=== PATIENT | female | born 1960 | race Caucasian/White ===

== ENCOUNTER 2019-06-23 19:48 | Emergency (ER) | payer OTHER, BC ==
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
[2019-06-23] MEDS ORDERED: IBUPROFEN 600 MG TABLET PO STA (23:21)
[2019-06-23] MEDS ORDERED: ACETAMINOPHEN 325 MG TABLET PO STA (23:21)
[2019-06-23 23:34] VITALS: BP 130/77
== END 2019-06-23 23:57 | disposition home or self-care (01) ==
LOC: ED 19:48
DX: S20.219A Contusion of unspecified front wall of thorax, initial encounter (principal); S80.02XA Contusion of left knee, initial encounter; V43.52XA Car driver injured in collision with other type car in traffic accident, initial encounter; Y92.410 Unspecified street and highway as the place of occurrence of the external cause
CPT/HCPCS: 71046; 99282; 99283; A9270